=== PATIENT | male | born 1990 | race Caucasian/White ===

== ENCOUNTER 2022-07-21 13:28 | Inpatient (IN) | payer OTHER ==
[2022-07-21 15:07] VITALS: BMI 22.2
[2022-07-21] MEDS ORDERED: MAGNESIUM HYDROX 2400MG/30ML ORAL SUSPENSION 30 ML CUP PO PRN (17:27)
[2022-07-21] MEDS ORDERED: BISMUTH SUBSALICYLATE 524 MG/30 ML PO PRN (17:27)
[2022-07-21] MEDS ORDERED: ACETAMINOPHEN 325 MG TABLET (FP) PO PRN ×2 (17:27)
[2022-07-21] MEDS ORDERED: DICYCLOMINE HCL 10 MG CAPSULE PO PRN (17:27)
[2022-07-21] MEDS ORDERED: LOPERAMIDE HCL 2 MG CAPSULE PO PRN (17:27)
[2022-07-21] MEDS ORDERED: BENZOCAINE/MENTHOL (CHLORASEPTIC ) LOZENGE MM PRN (17:27)
[2022-07-21] MEDS ORDERED: NALOXONE HCL (KLOXXADO) 8 MG SPRAY NS PRN (17:27)
[2022-07-21] MEDS ORDERED: MAG HYDROX/AL HYDROX/SIMETH 30 ML UNIT-DOSE CUP PO PRN (17:27)
[2022-07-21] MEDS ORDERED: IBUPROFEN 400 MG TABLET (FP) PO PRN (17:27)
[2022-07-21] MEDS: diazePAM 5 MG TABLET PO PRN (18:28)
[2022-07-21] MEDS: IBUPROFEN 600 MG TABLET (FP) PO PRN (18:29)
[2022-07-21] MEDS: METHOCARBAMOL 500 MG TABLET PO PRN (18:29)
[2022-07-21] MEDS: NICOTINE 10 MG CARTRIDGE (INHALER) IH PRN ×2 (21:04→23:32)
[2022-07-21] MEDS ORDERED: GABAPENTIN 300 MG CAPSULE PO ONE (23:19)
[2022-07-21] MEDS: GABAPENTIN 300 MG CAPSULE PO SCH (23:27)
[2022-07-21] MEDS: MELATONIN 5 MG TABLETS PO SCH (23:27)
[2022-07-21] MEDS: THIAMINE HCL 100 MG TABLET (FP) PO SCH (23:27)
[2022-07-21] MEDS: diazePAM 5 MG TABLET PO SCH (23:28)
[2022-07-22] MEDS: diazePAM 5 MG TABLET PO SCH ×4 (05:20→22:23)
[2022-07-22] MEDS: diazePAM 5 MG TABLET PO PRN ×3 (07:38→20:13)
[2022-07-22] MEDS: PRENATAL VITAMINS W/ FOLIC ACID TABLET (FP) PO SCH (10:18)
[2022-07-22] MEDS: GABAPENTIN 300 MG CAPSULE PO SCH ×2 (10:18→22:23)
[2022-07-22] MEDS: NICOTINE 10 MG CARTRIDGE (INHALER) IH PRN (11:48)
[2022-07-22 13:07] LABS: HEMATOCRIT 34.8 % (35.4-49); MCHC 31.7 g/dl (32.0-35.9); MEAN CELL VOLUME 62.8 fl (80-96); MEAN PLT VOLUME 9.7 fl (7.5-11.1); PLATELET COUNT 183 10^3/uL (134-434); RBC 5.54 M/mm3 (4.00-5.60); RDW 18.1 % (11.9-15.9); WHITE BLOOD COUNT 4.9 K/mm3 (4.0-10.0)
[2022-07-22] MEDS: methaDONE HCL 10 MG TABLET PO SCH (13:11)
[2022-07-22] MEDS: METHOCARBAMOL 500 MG TABLET PO PRN (13:11)
[2022-07-22 13:14] LABS: ALBUMIN 3.3 g/dl (3.4-5.0); BLOOD UREA NITROGEN 11.1 mg/dL (7-18); CALCIUM 8.6 mg/dL (8.5-10.1)
[2022-07-22 13:16] LABS: CREATININE 0.7 mg/dL (0.55-1.3)
[2022-07-22 13:17] LABS: BILIRUBIN,TOTAL 0.2 mg/dL (0.2-1)
[2022-07-22 13:18] LABS: TOT PROT 5.8 g/dl (6.4-8.2)
[2022-07-22 13:28] LABS: MCH 19.9 pg (25.7-33.7)
[2022-07-22] MEDS: THIAMINE HCL 100 MG TABLET (FP) PO SCH (22:23)
[2022-07-22] MEDS: MELATONIN 5 MG TABLETS PO SCH (22:24)
[2022-07-23] MEDS: diazePAM 5 MG TABLET PO SCH ×3 (05:22→22:02)
[2022-07-23] MEDS: methaDONE HCL 10 MG TABLET PO SCH (07:00)
[2022-07-23] MEDS: PRENATAL VITAMINS W/ FOLIC ACID TABLET (FP) PO SCH (09:24)
[2022-07-23] MEDS: GABAPENTIN 300 MG CAPSULE PO SCH ×2 (09:24→22:02)
[2022-07-23] MEDS: diazePAM 5 MG TABLET PO PRN ×2 (09:24→17:10)
[2022-07-23] MEDS: METHOCARBAMOL 500 MG TABLET PO PRN ×2 (09:24→22:02)
[2022-07-23] MEDS ORDERED: methaDONE HCL 40 MG DISPERSABLE TABLET PO ONE (11:32)
[2022-07-23] MEDS: NICOTINE 10 MG CARTRIDGE (INHALER) IH PRN ×2 (11:41→17:09)
[2022-07-23] MEDS: MELATONIN 5 MG TABLETS PO SCH (22:02)
[2022-07-23] MEDS: THIAMINE HCL 100 MG TABLET (FP) PO SCH (22:02)
[2022-07-24] MEDS: diazePAM 5 MG TABLET PO PRN ×3 (01:29→12:38)
[2022-07-24] MEDS: diazePAM 5 MG TABLET PO SCH ×2 (05:11→17:37)
[2022-07-24] MEDS: methaDONE 40 MG, methaDONE 30 MG PO SCH (05:12)
[2022-07-24] MEDS: NICOTINE 10 MG CARTRIDGE (INHALER) IH PRN ×3 (05:23→22:38)
[2022-07-24] MEDS ORDERED: methaDONE HCL 10 MG TABLET PO SCH (06:00)
[2022-07-24] MEDS: GABAPENTIN 300 MG CAPSULE PO SCH ×3 (10:19→22:38)
[2022-07-24] MEDS: METHOCARBAMOL 500 MG TABLET PO PRN ×3 (10:19→22:37)
[2022-07-24] MEDS: PRENATAL VITAMINS W/ FOLIC ACID TABLET (FP) PO SCH (10:20)
[2022-07-24] MEDS ORDERED: COLLOIDAL OATMEAL 1 BAR EACH TP PRN (12:42)
[2022-07-24] MEDS: IBUPROFEN 600 MG TABLET (FP) PO PRN (17:36)
[2022-07-24] MEDS ORDERED: hydrOXYzine PAMOATE 25 MG CAPSULE (FP) PO ONE (19:19)
[2022-07-24] MEDS: THIAMINE HCL 100 MG TABLET (FP) PO SCH (22:34)
[2022-07-24] MEDS: MELATONIN 5 MG TABLETS PO SCH (22:37)
[2022-07-25] MEDS ORDERED: diazePAM 5 MG TABLET PO ONE (06:00)
[2022-07-25] MEDS: methaDONE 40 MG, methaDONE 30 MG PO SCH (06:38)
[2022-07-25] MEDS: GABAPENTIN 300 MG CAPSULE PO SCH ×2 (06:39→13:08)
[2022-07-25 09:18] VITALS: RESP 16
[2022-07-25] MEDS: METHOCARBAMOL 500 MG TABLET PO PRN (09:22)
[2022-07-25] MEDS: PRENATAL VITAMINS W/ FOLIC ACID TABLET (FP) PO SCH (09:22)
[2022-07-25] MEDS: NICOTINE 10 MG CARTRIDGE (INHALER) IH PRN (10:17)
[2022-07-25] MEDS: IBUPROFEN 600 MG TABLET (FP) PO PRN (12:12)
[2022-07-25 12:44] VITALS: BP 120/74; PULSE 80; TEMP 98.4
== END 2022-07-25 13:23 | disposition other institution (70) | DRG 773 ==
LOC: YASAS 13:28 → Y3N 17:25
PROVIDERS: ADMIT Allergy & Immunology; ATTEND Surgery
PROC: HZ2ZZZZ Detoxification Services for Substance Abuse Treatment (ICD-10-PCS; principal; 2022-07-21)
DX: F11.23 Opioid dependence with withdrawal (principal); F13.20 Sedative, hypnotic or anxiolytic dependence, uncomplicated; F14.20 Cocaine dependence, uncomplicated; F12.20 Cannabis dependence, uncomplicated; F17.210 Nicotine dependence, cigarettes, uncomplicated; F19.280 Other psychoactive substance dependence with psychoactive substance-induced anxiety disorder; F41.9 Anxiety disorder, unspecified; F32.A Depression, unspecified; M54.41 Lumbago with sciatica, right side; M54.42 Lumbago with sciatica, left side; G89.29 Other chronic pain; R63.4 Abnormal weight loss; Z68.22 Body mass index [BMI] 22.0-22.9, adult; Z86.19 Personal history of other infectious and parasitic diseases; Z88.2 Allergy status to sulfonamides
CPT/HCPCS: 36415; 80053; 85027; 86780; C9803-CS; U0003; U0005

== ENCOUNTER 2022-07-25 13:27 | Inpatient (IN) | payer OTHER ==
[2022-07-25] MEDS ORDERED: MAG HYDROX/AL HYDROX/SIMETH 30 ML UNIT-DOSE CUP PO PRN (15:33)
[2022-07-25] MEDS ORDERED: MAGNESIUM CITRATE 300 ML BOTTLE PO PRN (15:33)
[2022-07-25] MEDS ORDERED: P-EPHED 60MG/TRIPROLIDI 2.5MG TABLET PO PRN (15:33)
[2022-07-25] MEDS ORDERED: LOPERAMIDE HCL 2 MG CAPSULE PO PRN (15:33)
[2022-07-25] MEDS ORDERED: MAGNESIUM HYDROX 2400MG/30ML ORAL SUSPENSION 30 ML CUP PO PRN (15:33)
[2022-07-25] MEDS ORDERED: BENZOCAINE/MENTHOL (CHLORASEPTIC ) LOZENGE MM PRN (15:33)
[2022-07-25] MEDS ORDERED: guaiFENesin 200 MG/10 ML 10 ML UNIT-DOSE CUPS PO PRN (15:33)
[2022-07-25] MEDS ORDERED: NICOTINE POLACRILEX 4 MG GUM BUC PRN (15:33)
[2022-07-25] MEDS ORDERED: COLLOIDAL OATMEAL 1 BAR EACH TP PRN (15:37)
[2022-07-25] MEDS: GABAPENTIN 300 MG CAPSULE PO SCH ×2 (18:15→21:30)
[2022-07-25] MEDS: NICOTINE 10 MG CARTRIDGE (INHALER) IH PRN (21:30)
[2022-07-25] MEDS: BACLOFEN 10 MG TABLET (FP) PO SCH (21:31)
[2022-07-25] MEDS: THIAMINE HCL 100 MG TABLET (FP) PO SCH (21:31)
[2022-07-25] MEDS ORDERED: MELATONIN 5 MG TABLETS PO SCH (22:00)
[2022-07-26] MEDS: GABAPENTIN 300 MG CAPSULE PO SCH ×3 (06:31→21:18)
[2022-07-26] MEDS: NICOTINE 10 MG CARTRIDGE (INHALER) IH PRN ×4 (06:34→21:20)
[2022-07-26] MEDS: methaDONE 40 MG, methaDONE 30 MG PO SCH (09:39)
[2022-07-26] MEDS: PRENATAL VITAMINS W/ FOLIC ACID TABLET (FP) PO SCH (09:41)
[2022-07-26] MEDS: BACLOFEN 10 MG TABLET (FP) PO SCH ×2 (09:41→21:18)
[2022-07-26] MEDS: NICOTINE 7 MG/24 HOURS TOPICAL PATCH TD SCH (09:41)
[2022-07-26] MEDS: IBUPROFEN 400 MG TABLET (FP) PO PRN (09:45)
[2022-07-26] MEDS ORDERED: methaDONE HCL 40 MG DISPERSABLE TABLET PO SCH (10:00)
[2022-07-26 12:29] LABS: HIV INTERPRETATION NEGATIVE (NEGATIVE)
[2022-07-26] MEDS: hydrOXYzine PAMOATE 25 MG CAPSULE (FP) PO PRN ×2 (13:06→21:18)
[2022-07-26] MEDS: ACETAMINOPHEN 325 MG TABLET (FP) PO PRN (13:06)
[2022-07-26] MEDS: THIAMINE HCL 100 MG TABLET (FP) PO SCH (21:18)
[2022-07-27] MEDS: BACLOFEN 10 MG TABLET (FP) PO SCH ×2 (09:20→21:18)
[2022-07-27] MEDS: GABAPENTIN 300 MG CAPSULE PO SCH ×2 (09:20→21:18)
[2022-07-27] MEDS: methaDONE 40 MG, methaDONE 30 MG PO SCH (09:20)
[2022-07-27] MEDS: PRENATAL VITAMINS W/ FOLIC ACID TABLET (FP) PO SCH (09:20)
[2022-07-27] MEDS: NICOTINE 7 MG/24 HOURS TOPICAL PATCH TD SCH (09:21)
[2022-07-27] MEDS: SELENIUM SULFIDE 2.25% 180 ML SHAMPOO TP SCH (09:24)
[2022-07-27] MEDS: NICOTINE 10 MG CARTRIDGE (INHALER) IH PRN ×3 (09:24→18:34)
[2022-07-27] MEDS: IBUPROFEN 400 MG TABLET (FP) PO PRN (18:32)
[2022-07-27] MEDS: hydrOXYzine PAMOATE 25 MG CAPSULE (FP) PO PRN (21:19)
[2022-07-27] MEDS: SUVOREXANT 10 MG TABLET PO PRN (21:19)
[2022-07-27] MEDS: THIAMINE HCL 100 MG TABLET (FP) PO SCH (22:06)
[2022-07-28] MEDS: methaDONE 40 MG, methaDONE 30 MG PO SCH (10:04)
[2022-07-28] MEDS: GABAPENTIN 300 MG CAPSULE PO SCH ×2 (10:05→21:06)
[2022-07-28] MEDS: PRENATAL VITAMINS W/ FOLIC ACID TABLET (FP) PO SCH (10:06)
[2022-07-28] MEDS: NICOTINE 21 MG/24 HOURS TOPICAL PATCH TD SCH (10:07)
[2022-07-28] MEDS: NICOTINE 10 MG CARTRIDGE (INHALER) IH PRN ×3 (10:08→16:35)
[2022-07-28] MEDS: SELENIUM SULFIDE 2.25% 180 ML SHAMPOO TP SCH (10:20)
[2022-07-28] MEDS: BACLOFEN 10 MG TABLET (FP) PO SCH ×3 (10:20→21:06)
[2022-07-28] MEDS ORDERED: BACLOFEN 10 MG TABLET (FP) PO SCH (14:00)
[2022-07-28] MEDS: IBUPROFEN 400 MG TABLET (FP) PO PRN (16:36)
[2022-07-28] MEDS: THIAMINE HCL 100 MG TABLET (FP) PO SCH (21:06)
[2022-07-28] MEDS: SUVOREXANT 10 MG TABLET PO PRN (21:07)
[2022-07-29] MEDS: NICOTINE 10 MG CARTRIDGE (INHALER) IH PRN ×4 (06:30→20:09)
[2022-07-29] MEDS: BACLOFEN 10 MG TABLET (FP) PO SCH ×3 (06:30→21:11)
[2022-07-29] MEDS: IBUPROFEN 400 MG TABLET (FP) PO PRN ×2 (06:31→17:38)
[2022-07-29] MEDS: PRENATAL VITAMINS W/ FOLIC ACID TABLET (FP) PO SCH (09:49)
[2022-07-29] MEDS: methaDONE 40 MG, methaDONE 30 MG PO SCH (09:49)
[2022-07-29] MEDS: GABAPENTIN 300 MG CAPSULE PO SCH ×2 (09:49→21:11)
[2022-07-29] MEDS: NICOTINE 21 MG/24 HOURS TOPICAL PATCH TD SCH (09:51)
[2022-07-29] MEDS: SELENIUM SULFIDE 2.25% 180 ML SHAMPOO TP SCH (09:52)
[2022-07-29] MEDS ORDERED: ONDANSETRON *ODT* 4 MG TABLET SL PRN (10:28)
[2022-07-29] MEDS ORDERED: methaDONE HCL 10 MG TABLET PO ONE (11:19)
[2022-07-29] MEDS ORDERED: GABAPENTIN 300 MG CAPSULE PO ONE (11:25)
[2022-07-29] MEDS: hydrOXYzine PAMOATE 25 MG CAPSULE (FP) PO PRN ×2 (15:46→21:11)
[2022-07-29] MEDS: THIAMINE HCL 100 MG TABLET (FP) PO SCH (21:11)
[2022-07-29] MEDS: ACETAMINOPHEN 325 MG TABLET (FP) PO PRN (21:37)
[2022-07-29] MEDS ORDERED: SUVOREXANT 10 MG TABLET PO PRN (22:00)
[2022-07-30] MEDS: hydrOXYzine PAMOATE 25 MG CAPSULE (FP) PO PRN ×2 (06:16→13:19)
[2022-07-30] MEDS: NICOTINE 10 MG CARTRIDGE (INHALER) IH PRN ×2 (06:16→10:06)
[2022-07-30] MEDS: BACLOFEN 10 MG TABLET (FP) PO SCH ×2 (06:17→13:19)
[2022-07-30 06:37] VITALS: BP 111/72; PULSE 52; RESP 18; TEMP 97.7
[2022-07-30] MEDS: GABAPENTIN 300 MG CAPSULE PO SCH (10:02)
[2022-07-30] MEDS: NICOTINE 21 MG/24 HOURS TOPICAL PATCH TD SCH (10:02)
[2022-07-30] MEDS: methaDONE 40 MG, methaDONE 30 MG PO SCH (10:03)
[2022-07-30] MEDS: SELENIUM SULFIDE 2.25% 180 ML SHAMPOO TP SCH (10:04)
[2022-07-30] MEDS: IBUPROFEN 400 MG TABLET (FP) PO PRN (13:19)
== END 2022-07-30 15:22 | disposition left against medical advice (07) | DRG 770 ==
LOC: YASAS 13:27 → Y3W 13:30 → Y3E 18:51
PROVIDERS: ADMIT Allergy & Immunology; ATTEND Psychiatry & Neurology Pain Medicine
PROC: HZ42ZZZ Group Counseling for Substance Abuse Treatment, Cognitive-Behavioral (ICD-10-PCS; principal; 2022-07-25)
DX: F11.20 Opioid dependence, uncomplicated (principal); F13.20 Sedative, hypnotic or anxiolytic dependence, uncomplicated; F14.20 Cocaine dependence, uncomplicated; F12.20 Cannabis dependence, uncomplicated; F17.210 Nicotine dependence, cigarettes, uncomplicated; F41.9 Anxiety disorder, unspecified; G47.00 Insomnia, unspecified; M54.50 Low back pain, unspecified; G89.29 Other chronic pain; Z88.2 Allergy status to sulfonamides
CPT/HCPCS: 36415; 87389; J0475; Q0162

== ENCOUNTER 2022-07-30 15:44 | Emergency (ER) | payer OTHER ==
[2022-07-30 15:48] VITALS: BP 133/79; PULSE 70; RESP 18; TEMP 98; BMI 24.2
[2022-07-30] MEDS ORDERED: LIDOCAINE 5% TOPICAL PATCH TP ONE (16:35)
[2022-07-30] MEDS ORDERED: GABAPENTIN 300 MG CAPSULE PO ONE (16:35)
[2022-07-30] MEDS ORDERED: BACLOFEN 10 MG TABLET (FP) PO ONE (16:35)
[2022-07-30] MEDS ORDERED: BACLOFEN 10 MG TABLET (FP) ONE (16:43)
[2022-07-30] MEDS ORDERED: GABAPENTIN 300 MG CAPSULE ONE (16:43)
[2022-07-30] MEDS ORDERED: LIDOCAINE 5% TOPICAL PATCH ONE (16:44)
[2022-07-30] MEDS ORDERED: LIDOCAINE PATCH REMOVAL MC SCH (22:00)
== END 2022-07-30 16:59 | disposition home or self-care (01) ==
LOC: JERFT 15:44
DX: M54.42 Lumbago with sciatica, left side (principal)
CPT/HCPCS: 99283-25; J0475